=== PATIENT | female | born 1990 | race Caucasian/White ===

== ENCOUNTER 2016-10-05 20:19 | Emergency (ER) | payer OTHER | END 2016-10-05 20:54 | disposition home or self-care (01) | LOC: ER1 20:19 | DX: L03.211 Cellulitis of face (principal); F17.210 Nicotine dependence, cigarettes, uncomplicated; Z88.2 Allergy status to sulfonamides; Z90.49 Acquired absence of other specified parts of digestive tract | CPT/HCPCS: 99283 ==